=== PATIENT | male | born 1955 | race Caucasian/White ===

== ENCOUNTER 2016-10-15 13:29 | Emergency (ER) | payer SELFPAY | END 2016-10-15 18:10 | disposition home or self-care (01) | LOC: D.ER 13:29 | DX: S16.1XXA Strain of muscle, fascia and tendon at neck level, initial encounter (principal); V59.40XA Driver of pick-up truck or van injured in collision with unspecified motor vehicles in traffic accident, initial encounter; Y93.89 Activity, other specified; Y92.410 Unspecified street and highway as the place of occurrence of the external cause; S43.402A Unspecified sprain of left shoulder joint, initial encounter ==

== ENCOUNTER → 2017-05-02 14:56 | Outpatient (CLI) | payer SELFPAY | END | disposition home or self-care (01) | LOC: D.MRI 04-24 15:00 | DX: M54.12 Radiculopathy, cervical region (principal) ==